=== PATIENT | male | born 1965 | race African-American/Black ===

== ENCOUNTER 2019-04-30 14:40 | Emergency (ER) | payer MEDICAID ==
[~2019-04-30] VITALS: Ht 180.3 cm; Wt 69.0 kg
[2019-04-30 16:00] VITALS: BP 114/70
== END 2019-04-30 17:14 | disposition home or self-care (01) ==
LOC: ER 14:50 → EDBD 14:50 → ER 17:14
DX: R46.2 Strange and inexplicable behavior (principal)
CPT/HCPCS: 99283; 99284